=== PATIENT | female | born 1990 | race Caucasian/White ===

== ENCOUNTER 2020-07-07 07:08 | Day surgery (SDC) | payer OTHER ==
[2020-07-07] MEDS ORDERED: PROPOFOL INJ 200 MG/20 ML VIAL IV ONE ×2 (07:54→09:33)
[2020-07-07 10:20] VITALS: BP 98/62
--- NOTE | 2020-07-07 12:18 | Operative Report ---
Operative Report DATE OF SURGERY: 07/07/20 Operative Report: The risk, benefits and alternatives of the procedure including the risk of bleeding, perforation requiring surgery have been explained to the patient in detail and informed consent has been obtained. Patient is taken back to the operating room and placed in left lateral decubital position.. Timeout was called. Propofol medication is administered. A rectal examination is done which did not reveal any masses, tears or fissures. An Olympus videoscope was introduced into the patient's rectum. The scope was then carefully advanced all the way to the cecum. The cecum was identified by the usual anatomical landmarks of the ileocecal valve as well as the appendiceal office. Photodocumentation is obtained. Scope was then sequentially pulled back via the various segments of the colon including the ascending colon, hepatic flexure, transverse colon, splenic flexure, descending colon and finally into the rectosigmoid portions of the colon. Retroflexion maneuver is performed. PREOPERATIVE DIAGNOSIS: Change in bowel habits POSTOPERATIVE DIAGNOSIS: Mild inflammation in the terminal ileum status post biopsy rule out Crohn's disease OPERATION: Colonoscopy with biopsy SURGEON: JESUS WADSWORTH ANESTHESIA: LMAC TISSUE REMOVED OR ALTERED: As noted above. COMPLICATIONS: None. ESTIMATED BLOOD LOSS: None. INTRAOPERATIVE FINDINGS: As noted above. PROCEDURE: Patient tolerated the procedure well. No immediate postprocedure complications are noted. Patient is discharged in good condition. Discharge date 07/07/2020. Discharge diet: Regular. Discharge activity: Regular. 2 to 3-week follow-up to discuss findings. Patient is instructed call the office or proceed to the emergency room should there be any further problems questions. Wait on the pathology.
== END 2020-07-07 10:17 | disposition home or self-care (01) ==
LOC: OROUT 07:08
PROVIDERS: ATTEND Internal Medicine Gastroenterology
DX: K50.00 Crohn's disease of small intestine without complications (principal); Z80.0 Family history of malignant neoplasm of digestive organs; Z90.49 Acquired absence of other specified parts of digestive tract; Z79.1 Long term (current) use of non-steroidal anti-inflammatories (NSAID)
CPT/HCPCS: 45380; 88305 ×2; 00811; J2704; 811

== ENCOUNTER 2020-07-09 18:27 | Emergency (ER) | payer OTHER ==
[2020-07-09 18:49] VITALS: BP 125/74
[2020-07-09] MEDS ORDERED: ONDANSETRON HCL INJ/PF 4 MG/2 ML SDV IV ONE (21:15)
[2020-07-09] MEDS ORDERED: NORMAL SALINE 1000 ML 1,000 ML IV ONE (21:15)
--- NOTE | 2020-07-09 21:15 | ER Document Report ---
ED Medical Screen (RME) - General Chief Complaint: Abdominal Pain Stated Complaint: ABDOMINAL PAIN Time Seen by Provider: 07/09/20 21:09 Primary Care Provider: NIMA MOELLER PA [Primary Care Provider] - Follow up as needed Mode of Arrival: Ambulatory Information source: Patient Notes: HPI; 30-year-old female presents the emergency room complaining of abdominal pain with nausea without vomiting. She had a colonoscopy on Tuesday was feeling well on Tuesday. States was able to have a normal bowel movement passing gas. States today she is having worsening pain, bloating, unable to pass gas. Denies fevers. No meds for symptoms. PE: Alert and oriented x3. Lungs: Clear to auscultation without rales, rhonchi, wheezes. Heart: Regular rate rhythm without murmurs, rubs, gallops. I have greeted and performed a rapid initial assessment of this patient. A comprehensive ED assessment and evaluation of the patient, analysis of test results and completion of the medical decision making process will be conducted by additional ED providers. I have specifically instructed the patient or family members with the patient to immediately return to any nursing staff should anything change in the patient's condition or with their chief complaint. TRAVEL OUTSIDE OF THE [place] IN LAST 30 DAYS: No - Related Data Allergies/Adverse Reactions: latex Allergy (Severe, Verified 07/09/20 21:08) SEVERE SWELLING Penicillins Allergy (Intermediate, Verified 07/09/20 21:08) HEART RACES Past Medical History - Social History Frequency of alcohol use: Social - Past Medical History Cardiac Medical History: Denies: Hx Coronary Artery Disease, Hx Heart Attack, Hx Hypertension Pulmonary Medical History: Denies: Hx Asthma, Hx Bronchitis, Hx COPD, Hx Pneumonia Neurological Medical History: Denies: Hx Cerebrovascular Accident, Hx Seizures Musculoskeltal Medical History: Denies Hx Arthritis - Immunizations Hx Diphtheria, Pertussis, Tetanus Vaccination: Yes Physical Exam - Vital signs Vitals: Temp Pulse Resp BP Pulse Ox 98.4 F 78 16 125/74 100 07/09/20 18:46 07/09/20 18:46 07/09/20 18:46 07/09/20 18:46 07/09/20 18:46 Course - Vital Signs Vital signs: Temp Pulse Resp BP Pulse Ox 98.4 F 78 16 125/74 100 07/09/20 18:46 07/09/20 18:46 07/09/20 18:46 07/09/20 18:46 07/09/20 18:46 Doctor's Discharge - Discharge Referrals: NIMA MOELLER PA [Primary Care Provider] - Follow up as needed
[2020-07-09 22:03] LABS: APPEARANCE,URINE CLEAR; BILIRUBIN,URINE NEGATIVE (NEGATIVE); COLOR,URINE YELLOW; GLUCOSE, URINE NEGATIVE (NEGATIVE); KETONES,URINE TRACE mg/dL (NEGATIVE); LEUKOCYTE ESTERASE,URINE TRACE (NEGATIVE); NITRITE,URINE NEGATIVE (NEGATIVE); PROTEIN,URINE NEGATIVE (NEGATIVE); URINE SPECIFIC GRAVITY 1.011; UROBILINOGEN,URINE NEGATIVE mg/dL (<2.0)
[2020-07-09 22:07] LABS: ABSOLUTE EOSINOPHILS # (AUTO) 0.1 10^3/uL (0.0-0.6); ABSOLUTE LYMPHOCYTES (AUTO) 2.1 10^3/uL (0.5-4.7); ABSOLUTE MONOCYTES (AUTO) 0.5 10^3/uL (0.1-1.4); ABSOLUTE NEUT (AUTO) 3.6 10^3/uL (1.7-8.2); BASOPHILS % (AUTO) 0.5 % (0-2); EOSINOPHILS % (AUTO) 1.2 % (0-6); HEMATOCRIT 38.7 % (36.0-47.0); HEMOGLOBIN 13.7 g/dL (12.0-15.5); LYMPHOCYTES % (AUTO) 33.1 % (13-45); MEAN CORPUSCULAR HEMOGLOBIN 30.7 pg (27.0-33.4); MEAN CORPUSCULAR HGB CONC 35.3 g/dL (32.0-36.0); MEAN CORPUSCULAR VOLUME 87 fl (80-97); MONOCYTES % (AUTO) 7.4 % (3-13); PLATELET COUNT 238 10^3/uL (150-450); RED BLOOD COUNT 4.47 10^6/uL (3.72-5.28); RED CELL DISTRIBUTION WIDTH 13.3 % (11.5-14.0); SEGMENTED NEUTROPHILS % (AUTO) 57.8 % (42-78); TOTAL CELLS COUNTED % (AUTO) 100 %; WHITE BLOOD COUNT 6.3 10^3/uL (4.0-10.5)
[2020-07-09 22:23] LABS: ALBUMIN 4.8 g/dL (3.5-5.0); ALKALINE PHOSPHATASE 43 U/L (38-126); ANION GAP 8 (5-19); ASPARTATE AMINO TRANSFERASE 20 U/L (14-36); BILIRUBIN,DIRECT 0.2 mg/dL (0.0-0.4); BILIRUBIN,TOTAL 0.7 mg/dL (0.2-1.3); BLOOD UREA NITROGEN 7 mg/dL (7-20); CALCIUM 9.8 mg/dL (8.4-10.2); CARBON DIOXIDE 25 mmol/L (22-30); CHLORIDE 104 mmol/L (98-107); GLUCOSE 93 mg/dL (75-110); POTASSIUM 3.8 mmol/L (3.6-5.0)
--- NOTE | 2020-07-10 01:03 | RADIOLOGY REPORT (SQ) ---
EXAM EXAM DESCRIPTION: CT ABD/PELVIS WITH IV ONLY CLINICAL HISTORY: 30 years Female; abdominal pain, had a colonoscopy done on Tuesday. HCG NEG TECHNIQUE: CT of the abdomen and pelvis with intravenous contrast.. Oral contrastWas not used. Delayed imaging of the abdomen and pelvis was performed. All CT scans at this facility use dose modulation, iterative reconstruction, and/or weight based dosing when appropriate to reduce radiation dose to as low as reasonably achievable. This exam was performed according to our department optimization program which includes automated exposure control, adjustment of the mA and/or kv according to patient size and/or use of iterative reconstruction technique. COMPARISON: None. FINDINGS: Lower chest:The lung bases are clear. The visualized portion of heart and great vessels are normal. Abdomen: Liver and biliary tree: Homogeneous enhancement of the liver. The gallbladder surgically absent. Portal vein and hepatic veins are patent. No biliary dilatation. Pancreas: Normal Spleen:Within normal limits Kidneys: Kidneys are normal in size, shape and position. No stones. No mass or hydronephrosis. Symmetric renal enhancement. Adrenal glands:Within normal limits Vascular structures:Within normal limits Retroperitoneum: No mass or lymphadenopathy Abdominal wall: normal GI: Moderate stool is present in the colon. The bowel is not dilated. No focal bowel wall thickening. No obstruction. Appendix: The appendix appears normal. General: Trace fluid is present in the cul-de-sac. Pelvis: Lymph nodes: No mass or lymphadenopathy Bladder: Unremarkable. Pelvis: No pelvic mass or adenopathy. Bones: No acute bone findings. IMPRESSION: No acute process is seen in the abdomen or pelvis. There is moderate stool in the colon. No bowel obstruction.
== END 2020-07-10 02:52 | disposition left against medical advice (07) ==
LOC: ER 18:27
DX: R10.9 Unspecified abdominal pain (principal); R11.0 Nausea; R14.0 Abdominal distension (gaseous); Z98.890 Other specified postprocedural states; Z91.040 Latex allergy status; Z88.0 Allergy status to penicillin; Z53.20 Procedure and treatment not carried out because of patient's decision for unspecified reasons
CPT/HCPCS: 36415; 74177; 80053; 81001; 84703; 85025; 99281